=== PATIENT | male | born 1985 | race Caucasian/White ===

== ENCOUNTER 2016-09-30 16:17 | Emergency (ER) | payer SELFPAY ==
[2016-09-30] MEDS ORDERED: Ondansetron 4 MG/2 ML SDV IVPUSH ONE (16:37)
[2016-09-30] MEDS ORDERED: Sodium Chloride 0.9% 10 ML Syringe FLUSH PRN (16:37)
[2016-09-30] MEDS ORDERED: HYDROmorphone 1 MG/ML Syringe IVPUSH ONE (16:38)
[2016-09-30] MEDS ORDERED: Ketorolac 30 MG/ML SDV IVPUSH ONE (16:38)
--- NOTE | 2016-09-30 16:43 | EDM.PDOC ---
ED HPI GENERAL MEDICAL PROBLEM - General Chief Complaint: Flank Pain Stated Complaint: BLOOD IN URINE/LOW BACK PAIN Time Seen by Provider: 09/30/16 16:30 Source of Information: Reports: Patient History Limitations: Reports: No Limitations - History of Present Illness INITIAL COMMENTS - FREE TEXT/NARRATIVE: The patient presents with left flank pain, nausea and vomiting. This started a week ago but it was not this bad. Today the pain got much worse. He has nausea and vomiting. He has no diarrhea. He has some hematuria. He has no dysuria. He has no fever, chills or cough. He has no chest pain or shortness of breath. He has no history of kidney stones. Onset: Gradual Duration: Week(s): (1) Location: Reports: Other (Left flank) Quality: Reports: Sharp Severity: Severe Improves with: Reports: None Worsens with: Reports: None Associated Symptoms: Reports: Nausea/Vomiting. Denies: Cough, Fever/Chills, Headaches, Shortness of Breath Treatments SHOULDER JOINER: Reports: Other (see below) Other Treatments SHOULDER JOINER: tramadol Left Flank Pain Score (Numeric/FACES): 10 - Related Data Allergies Allergy/AdvReac Type Severity Reaction Status Date / Time No Known Allergies Allergy Verified 09/30/16 16:28 Home Meds: Home Meds Ondansetron [Zofran ODT] 4 mg PO Q6H PRN #20 tab.dis 09/30/16 [Rx] Past Medical History - Past Health History Medical/Surgical History: Denies Medical/Surgical History Social & Family History - Tobacco Use Smoking Status *Q: Never Smoker - Caffeine Use Caffeine Use: Reports: Coffee - Recreational Drug Use Recreational Drug Use: No ED ROS GENERAL - Review of Systems Review Of Systems: See Below Constitutional: Reports: No Symptoms HEENT: Reports: No Symptoms Respiratory: Reports: No Symptoms Cardiovascular: Reports: No Symptoms Endocrine: Reports: No Symptoms GI/Abdominal: Reports: Abdominal Pain, Nausea, Vomiting : Reports: Flank Pain (Left), Hematuria Musculoskeletal: Reports: No Symptoms ED EXAM, RENAL/ - Physical Exam Exam: See Below Exam Limited By: No Limitations General Appearance: Alert, No Apparent Distress Ears: Normal External Exam Nose: Normal Inspection Head: Atraumatic, Normocephalic Neck: Normal Inspection Respiratory/Chest: No Respiratory Distress, Lungs Clear, Normal Breath Sounds Cardiovascular: Regular Rate, Rhythm, No Edema, No Murmur GI/Abdominal: Soft, Non-Tender, No Organomegaly, No Mass Back Exam: Normal Inspection Course - Vital Signs Last Recorded V/S: Last Vital Signs Temp 97.0 F 09/30/16 16:23 Pulse 101 H 09/30/16 16:23 Resp 20 09/30/16 16:23 BP 164/85 H 09/30/16 16:23 Pulse Ox 100 09/30/16 16:23 - Orders/Labs/Meds Orders: Active Orders 24 hr Category Date Time Status Peripheral IV Care [RC] . DIRECTED Care 09/30/16 16:38 Active Cyclobenzaprine [Flexeril] Med 09/30/16 18:22 Once 10 mg PO ONETIME ONE HYDROmorphone [Dilaudid] Med 09/30/16 18:21 Once 0.5 mg IVPUSH ONETIME ONE Sodium Chloride 0.9% [Normal Saline] 1,000 ml Med 09/30/16 16:45 Active IV ASDIRECTED Sodium Chloride 0.9% [Saline Flush] Med 09/30/16 16:37 Active 10 ml FLUSH ASDIRECTED PRN ED Antiemetic Medication Reflex [OM.PC] Stat Oth 09/30/16 16:37 Ordered Peripheral IV Insertion Adult [OM.PC] Stat Oth 09/30/16 16:37 Ordered Medication Orders Sodium Chloride (Normal Saline) 1,000 mls @ 125 mls/hr IV ASDIRECTED BAR Last Admin: 09/30/16 16:45 Dose: 125 mls/hr Sodium Chloride (Saline Flush) 10 ml FLUSH ASDIRECTED PRN PRN Reason: Keep Vein Open Last Admin: 09/30/16 16:48 Dose: 10 ml Labs: Laboratory Tests 09/30/16 09/30/16 09/30/16 Range/Units 16:28 16:28 16:30 WBC 12.11 H (4.23-9.07) K/mm3 RBC 4.77 (4.63-6.08) M/mm3 Hgb 14.3 (13.7-17.5) gm/L Hct 42.8 (40.1-51.0) % MCV 89.7 (79.0-92.2) fl MCH 30.0 (25.7-32.2) pg MCHC 33.4 (32.2-35.5) g/dl RDW Std Deviation 48.5 H (35.1-43.9) fL Plt Count 265 (163-337) K/mm3 MPV 10.3 (9.4-12.3) fl Neut % (Auto) 72.2 H (34.0-67.9) % Lymph % (Auto) 19.7 L (21.8-53.1) % [place] % (Auto) 6.9 (5.3-12.2) % Eos % (Auto) 0.7 L (0.8-7.0) Baso % (Auto) 0.3 (0.1-1.2) % Neut # (Auto) 8.74 H (1.78-5.38) K/mm3 Lymph # (Auto) 2.39 (1.32-3.57) K/mm3 [place] # (Auto) 0.84 H (0.30-0.82) K/mm3 Eos # (Auto) 0.08 (0.04-0.54) K/mm3 Baso # (Auto) 0.04 (0.01-0.08) K/mm3 Sodium 141 (136-145) mEq/L Potassium 4.1 (3.5-5.1) mEq/L Chloride 107 (98-107) mEq/L Carbon Dioxide 26 (21-32) mEq/L Anion Gap 12.1 (5-15) BUN 27 H (7-18) mg/dL Creatinine 1.3 (0.7-1.3) mg/dL Est Cr Clr Drug Dosing 84.23 mL/min Estimated GFR (MDRD) > 60 (>60) mL/min BUN/Creatinine Ratio 20.8 H (14-18) Glucose 106 (74-106) mg/dL Calcium 9.0 (8.5-10.1) mg/dL Total Bilirubin 0.5 (0.2-1.0) mg/dL AST 35 (15-37) U/L ALT 36 (16-63) U/L Alkaline Phosphatase 72 (46-116) U/L Total Protein 7.3 (6.4-8.2) g/dl Albumin 3.6 (3.4-5.0) g/dl Globulin 3.7 gm/dL Albumin/Globulin Ratio 1.0 (1-2) Lipase 167 (73-393) U/L Urine Color Yellow (Yellow) Urine Appearance Slt cloudy H (Clear) Urine pH 6.0 (5.0-8.0) Ur Specific [place] 1.025 (1.005-1.030) Urine Protein 1+ H (Negative) Urine Glucose (UA) Negative (Negative) Urine Ketones Negative (Negative) Urine Occult Blood 3+ H (Negative) Urine Nitrite Negative (Negative) Urine Bilirubin Negative (Negative) Urine Urobilinogen 0.2 (0.2-1.0) Ur Leukocyte Esterase Negative (Negative) Urine RBC >100 H (0-5) /hpf Urine WBC 0-5 (0-5) /hpf Ur Epithelial Cells Not Reportable Ur Squamous Epith Cells 5-10 H (0-5) /hpf Urine Bacteria Few (FEW) /hpf Urine Mucus Not seen (FEW) /hpf Meds: Medications Generic Name Dose Route Start Last Admin Trade Name Freq PRN Reason Stop Dose Admin Sodium Chloride 1,000 mls @ 125 mls/hr 09/30/16 16:45 09/30/16 16:45 Normal Saline IV 125 mls/hr ASDIRECTED BAR Administration Sodium Chloride 10 ml 09/30/16 16:37 09/30/16 16:48 Saline Flush FLUSH 10 ml ASDIRECTED PRN Administration Keep Vein Open Discontinued Medications Generic Name Dose Route Start Last Admin Trade Name Freq PRN Reason Stop Dose Admin Hydromorphone HCl 1 mg 09/30/16 16:38 09/30/16 16:47 Dilaudid IVPUSH 09/30/16 16:39 1 mg ONETIME ONE Administration Ketorolac Tromethamine 30 mg 09/30/16 16:38 09/30/16 16:46 Toradol IVPUSH 09/30/16 16:39 30 mg ONETIME ONE Administration Ondansetron HCl 4 mg 09/30/16 16:37 09/30/16 16:44 Zofran IVPUSH 09/30/16 16:38 4 mg ONETIME ONE Administration - Re-Assessments/Exams Free Text/Narrative Re-Assessment/Exam: 09/30/16 16:42 I ordered an IV NS at 125mL/hr, zofran 4mg IV, toradol 30mg IV, dilaudid 1g IV, labs, UA and a CT of his abdomen and pelvis. 09/30/16 18:23 His WBC was elevated at 12.11. His CMP looks good. His UA shows no UTI but he does have blood. The CT shows several small nonobstructing calculi within the left kidney. No ureteral dilatation or ureteral stone is seen. Mild increased stool within the colon. I believe he passed the stone already. He has muscle cramps to his lower back. I will give him some flexeril 10mg by mouth and some dilaudid 0.5mg IV. Departure - Departure Time of Disposition: 18:30 Disposition: Home, Self-Care 01 Condition: good Clinical Impression: Ureteric colic, Kidney stone on left side, Muscle spasm of back - Discharge Information Prescriptions: Ondansetron [Zofran ODT] 4 mg PO Q6H PRN #20 tab.dis PRN Reason: Nausea/Vomiting Referrals: PCP,None [Primary Care Provider] - Jarvis Ring MD [Physician] - 1 Week Forms: ED Department Discharge Additional Instructions: Take flexeril and percocet for the pain. Drink plenty of fluids. Take the zofran as needed for nausea. Follow up with Dr Ring. Please return if you are worse. - My Orders Last 24 Hours: My Active Orders 09/30/16 16:37 Sodium Chloride 0.9% [Saline Flush] 10 ml FLUSH ASDIRECTED PRN ED Antiemetic Medication Reflex [OM.PC] Stat Peripheral IV Insertion Adult [OM.PC] Stat 09/30/16 16:38 Peripheral IV Care [RC] . DIRECTED 09/30/16 16:45 Sodium Chloride 0.9% [Normal Saline] 1,000 ml IV ASDIRECTED 09/30/16 18:21 HYDROmorphone [Dilaudid] 0.5 mg IVPUSH ONETIME ONE 09/30/16 18:22 Cyclobenzaprine [Flexeril] 10 mg PO ONETIME ONE - Assessment/Plan Last 24 Hours: My Active Orders 09/30/16 16:37 Sodium Chloride 0.9% [Saline Flush] 10 ml FLUSH ASDIRECTED PRN ED Antiemetic Medication Reflex [OM.PC] Stat Peripheral IV Insertion Adult [OM.PC] Stat 09/30/16 16:38 Peripheral IV Care [RC] . DIRECTED 09/30/16 16:45 Sodium Chloride 0.9% [Normal Saline] 1,000 ml IV ASDIRECTED 09/30/16 18:21 HYDROmorphone [Dilaudid] 0.5 mg IVPUSH ONETIME ONE 09/30/16 18:22 Cyclobenzaprine [Flexeril] 10 mg PO ONETIME ONE
[2016-09-30] MEDS ORDERED: Sodium Chloride 0.9% 1,000 ML IV SCH (16:45)
--- NOTE | 2016-09-30 17:47 | CT ---
CT abdomen and pelvis Technique: Multiple axial sections were obtained from above the dome of the diaphragm inferiorly through the pubic symphysis. Intravenous and oral contrast not utilized. Study has been performed as a ureteral stone protocol. Findings: Several small nonobstructing calculi are seen within the left kidney. No ureteral dilatation or ureteral stone is seen. No bladder calculi are seen. Calcifications are seen within the pelvis which are felt compatible with phleboliths. Visualized lung bases shows nothing acute. Noncontrast appearance of the visualized liver and spleen appear within normal limits. Adrenal glands show no nodule. No discrete abnormality is appreciated within the pancreas. Aorta shows no aneurysmal dilatation. No retroperitoneal adenopathy or mesenteric abnormalities are seen. No pelvic mass or adenopathy is seen. No free fluid or inflammatory change is seen. No bowel dilatation is appreciated. Slight increased stool is noted within the colon. Bone window settings were reviewed which appears within normal limits for the patient's age. Impression: 1. Several small nonobstructing calculi within the left kidney. No ureteral dilatation or ureteral stone is seen. 2. Mild increased stool within the colon. 3. Nothing acute is otherwise seen on noncontrast CT study of the abdomen and pelvis performed as a ureteral stone protocol. Diagnostic code #2
[2016-09-30] MEDS ORDERED: HYDROmorphone 0.5 MG/0.5 ML Syringe IVPUSH ONE (18:21)
[2016-09-30] MEDS ORDERED: Cyclobenzaprine 10 MG Tab PO ONE (18:22)
[2016-09-30 19:02] VITALS: BP 138/81
== END 2016-09-30 19:00 | disposition home or self-care (01) ==
LOC: JD.ED 16:17
DX: N20.0 Calculus of kidney (principal); M62.830 Muscle spasm of back
CPT/HCPCS: 36415; 74176; 80053; 81001; 83690; 85025; 96361; 96374; 96375; 96376; 99284; A9270; J1170; J1885; J2405; J7040; J7050

== ENCOUNTER 2016-10-04 09:56 | Emergency (ER) | payer SELFPAY ==
[2016-10-04] MEDS ORDERED: HYDROmorphone 0.5 MG/0.5 ML Syringe IVPUSH ONE (10:29)
[2016-10-04] MEDS ORDERED: Metoclopramide 10 MG/2 ML SDV IVPUSH ONE (10:29)
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
[2016-10-04] MEDS ORDERED: Dextrose 5%-0.9% NaCl 1,000 ML IV SCH (10:30)
[2016-10-04] MEDS ORDERED: Lidocaine 1% 10 ML MDV INJECT ONE (10:31)
--- NOTE | 2016-10-04 10:56 | CT ---
Head CT Technique: Multiple axial sections through the brain were obtained. Intravenous contrast was not utilized. Comparison: No previous exam. Findings: Ventricles along the basal cisterns and sulci with convexities are within normal limits for the patient's age. No abnormal parenchymal densities are seen. No evidence of intracranial hemorrhage. No midline shift or mass effect is seen. Bone window settings were reviewed which shows no acute calvarial abnormality. Impression: 1. No acute intracranial abnormality is seen. No skull fracture is identified. Diagnostic code #1
--- NOTE | 2016-10-04 11:01 | CT ---
CT facial bones Technique: Multiple axial sections were obtained through the facial bones. Reconstructed coronal and sagittal images were reviewed. Findings: Minimal mucosal thickening is seen within the maxillary and left sphenoid sinus. Mastoid sinuses are clear. Mild nasal septal deviation is seen. No facial bone fracture is identified. Temporomandibular joints are slightly asymmetric but no acute bony abnormality seen is seen and this presumably represents mandible position. This finding could also represent joint effusion within the right temporomandibular joint. Right and left globes are symmetric. No retrobulbar abnormality is seen. Impression: 1. Asymmetric temporomandibular joints either due to mandible positioning or joint effusion on the right side. 2. No acute bony abnormality is seen. Diagnostic code #3
--- NOTE | 2016-10-04 11:02 | CT ---
CT cervical spine Technique: Multiple axial sections were obtained from above C2 inferiorly to the bottom of T1. Reconstructed sagittal and coronal images were reviewed. Findings: Minimal disc space narrowing is noted at C6-7 with minimal posterior osteophytes. Vertebral body heights are maintained. Vertebral bodies and posterior arches are intact with no fracture being seen. No bony central or bony neural foraminal stenosis is seen. Posterior skull base is intact. No abnormal subluxation is seen. Slight kyphosis is noted likely positional. Impression: 1. Incidental findings. Nothing acute is appreciated on CT study of the cervical spine. Diagnostic code #2
[2016-10-04 12:25] VITALS: BP 110/79
--- NOTE | 2016-10-04 12:55 | CR ---
Right hand: Two views of the right hand were obtained. Joint spaces are preserved. Deformity of the distal fifth metacarpal is seen as well as the shaft of the fourth metacarpal presumably due to old healed fractures. I do not see a definite acute fracture on this two-view study. Impression: 1. Findings felt compatible with old healed fractures as noted above. 2. Nothing acute is definitely appreciated on two-view right hand study. Diagnostic code #2
--- NOTE | 2016-10-04 12:55 | CR ---
Right forearm: Two views of the right forearm were obtained. Comparison: No previous study. No fracture or other abnormality is seen. Impression: 1. No abnormality is identified on two-view right forearm study. Diagnostic code #1
--- NOTE | 2016-10-04 12:55 | CR ---
Chest: Two views of the chest were obtained. Comparison: No previous study. Heart size and mediastinum are normal. Lungs are clear. Mild scoliosis is present within the spine. Old healed left clavicle fracture is noted. Impression: 1. Incidental findings. Nothing acute is identified on two-view chest x-ray. Diagnostic code #2
== END 2016-10-04 12:20 | disposition home or self-care (01) ==
LOC: JD.ED 09:56
DX: S01.511A Laceration without foreign body of lip, initial encounter (principal); S13.9XXA Sprain of joints and ligaments of unspecified parts of neck, initial encounter; M62.838 Other muscle spasm; S80.02XA Contusion of left knee, initial encounter; S20.212A Contusion of left front wall of thorax, initial encounter; S00.83XA Contusion of other part of head, initial encounter; M25.421 Effusion, right elbow; F17.210 Nicotine dependence, cigarettes, uncomplicated; Z87.442 Personal history of urinary calculi; Y04.0XXA Assault by unarmed brawl or fight, initial encounter
CPT/HCPCS: 12011; 70450; 70486; 71020; 72125; 73090; 73120; 96361; 96374; 96375; 99284; J1170; J2765; J7042

== ENCOUNTER 2016-10-17 10:10 | Emergency (ER) | payer OTHER ==
[2016-10-17] MEDS ORDERED: Ketorolac 30 MG/ML SDV IVPUSH ONE (10:53)
[2016-10-17] MEDS ORDERED: Ondansetron 4 MG/2 ML SDV IVPUSH ONE (10:53)
--- NOTE | 2016-10-17 11:19 | CT ---
CT cervical spine Technique: Multiple axial sections through the cervical spine were obtained from above C1 inferiorly to the mid T2 level. Reconstructed sagittal and coronal images were reviewed. Findings: Mastoid sinuses and middle ear cavities are clear. Posterior skull base is intact. Vertebral body heights and disc spaces are maintained. Vertebral bodies and posterior arches are intact with no fracture being seen. No bony central or bony neural foraminal stenosis is seen. No abnormal subluxation is seen. Impression: 1. No acute abnormality is seen on CT study of the cervical spine. Diagnostic code #1
--- NOTE | 2016-10-17 11:29 | CT ---
Head CT Technique: Multiple axial sections through the brain were obtained. Intravenous contrast was not utilized. Comparison: Previous head CT study is 10/04/16. Findings: Ventricles along with basal cisterns and sulci over the convexities are within normal limits for the patient's age. No abnormal parenchymal densities are seen. No evidence of intracranial hemorrhage. No midline shift or mass effect is seen. Bone window settings were reviewed which shows mucosal thickening within the left sphenoid sinus and minimal mucosal thickening posterior ethmoid sinuses and right sphenoid sinus. Other visualized sinuses are clear. No acute calvarial abnormality is seen. Impression: 1. Sinus findings. Please rule out any symptoms of acute sinusitis. 2. No acute intracranial abnormality is appreciated. Diagnostic code #3
--- NOTE | 2016-10-17 11:44 | EDM.PDOC ---
ED HPI GENERAL MEDICAL PROBLEM - General Chief Complaint: Head Injury Stated Complaint: HEAD INJURY Time Seen by Provider: 10/17/16 10:51 Source of Information: Reports: Patient History Limitations: Reports: No Limitations - History of Present Illness INITIAL COMMENTS - FREE TEXT/NARRATIVE: The patient is a 31-year-old male who comes in for evaluation of a head injury. The patient was at work and he stood up and hit his head against something very hard. He did not pass out. However he felt very dizzy and had some difficulty walking after the event. Has a moderate headache. Also has a wound on top of his head. No vision changes. He does have nausea. No vomiting. Denies neck pain. No chest pain or trouble breathing or abdominal pain. Denies additional injury. Came here for evaluation due to headache with dizziness and difficulty walking. Denies recent illness. Head Pain Score (Numeric/FACES): 10 - Related Data Allergies Allergy/AdvReac Type Severity Reaction Status Date / Time No Known Allergies Allergy Verified 10/17/16 10:39 Home Meds: Home Meds Creatine 500 gm MC DAILY 10/04/16 [History] Protein Supplement [Protein Powder] 454 gm PO TID 10/04/16 [History] oxyCODONE HCl/Acetaminophen [Percocet 5-325 mg Tablet] 1 - 2 each PO Q4H PRN # 15 tablet 10/04/16 [Rx] Past Medical History - Past Health History Medical/Surgical History: Denies Medical/Surgical History Genitourinary History: Reports: Renal Calculus Social & Family History - Family History Family Medical History: Noncontributory - Tobacco Use Smoking Status *Q: Current Some Day Smoker Years of Tobacco use: 10 Packs/Tins Daily: 0.2 - Caffeine Use Caffeine Use: Reports: Coffee - Recreational Drug Use Recreational Drug Use: No - Living Situation & Occupation Living situation: Reports: Single Occupation: Employed ED ROS GENERAL - Review of Systems Review Of Systems: See Below Constitutional: Reports: No Symptoms HEENT: Denies: Eye Pain, Vision Change Respiratory: Denies: Shortness of Breath Cardiovascular: Denies: Chest Pain Endocrine: Reports: No Symptoms GI/Abdominal: Denies: Abdominal Pain Musculoskeletal: Denies: Neck Pain Neurological: Reports: Dizziness, Headache ED EXAM, HEAD INJURY - Physical Exam Exam: See Below Exam Limited By: No Limitations General Appearance: Alert, WD/WN, No Apparent Distress Head: Scalp Abrasions, Scalp Tenderness, Other (Patient has a small abrasion and laceration to the left superior scalp area, no active bleeding, subcutaneous but well approximated, minimal surrounding hematoma and tenderness , no crepitus.) Nexus Criteria: Painful Distraction Injuries. No: Posterior, Midline Cervical Tenderness, Evidence of Intoxication, Focal Neurological Deficit Eyes: Bilateral Eye: EOMI, Normal Inspection, PERRL Ears: Normal External Exam, Hearing Grossly Normal Nose: Normal Inspection, Normal Mucousa, No Blood Throat/Mouth: Normal Inspection, Normal Lips, Normal Teeth, Normal Gums, Normal Oropharynx, Normal Voice, No Airway Compromise Neck: Non-Tender, Full Range of Motion, Normal Alignment, Normal Inspection, Other (C-collar in place) Respiratory: No Respiratory Distress, Lungs Clear, Normal Breath Sounds, Chest Non-Tender Cardiovascular: Normal Peripheral Pulses, Regular Rate, Rhythm, No Murmur GI/Abdominal Exam: Soft, Non-Tender, No Distention Back Exam: Normal Inspection Extremities: No Evidence of Injury 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, No Motor/Sensory Deficits, Alert, Normal Mood/Affect, Oriented x 3 Skin: Normal Color, Warm/Dry Course - Vital Signs Last Recorded V/S: Last Vital Signs Temp 36.7 C 10/17/16 10:45 Pulse 88 10/17/16 10:45 Resp 16 10/17/16 10:45 BP 138/90 10/17/16 10:45 Pulse Ox 100 10/17/16 10:45 - Orders/Labs/Meds Meds: Medications Discontinued Medications Generic Name Dose Route Start Last Admin Trade Name Mikael PRN Reason Stop Dose Admin Ketorolac Tromethamine 30 mg 10/17/16 10:53 Toradol IVPUSH 10/17/16 10:54 ONETIME ONE Ondansetron HCl 4 mg 10/17/16 10:53 Zofran IVPUSH 10/17/16 10:54 ONETIME ONE - Re-Assessments/Exams Free Text/Narrative Re-Assessment/Exam: 10/17/16 11:42 CT of the head shows no acute traumatic injury. He does have some mucosal thickening suggestive of sinusitis. The patient does not have any symptoms of sinusitis today. C-spine CT was negative. Patient clinically and radiographically cleared. His symptoms are consistent with concussion. Discussed concussion precautions, need for rest, need for follow-up, etc. Scalp wound does not require sutures. Departure - Departure Time of Disposition: 11:43 Disposition: Home, Self-Care 01 Clinical Impression: Concussion injury of brain, Scalp laceration - Discharge Information Forms: ED Department Discharge, Return to Work/School Form Additional Instructions: Take Tylenol and ibuprofen as needed for pain. It is okay to take both medications as they work and cleared by the body and for ways. Follow-up with the primary doctor as soon as possible for further care. You may call Dr. Vidal at [phone] to make an appointment if he would like to follow-up here. Rest. No work until cleared by a physician. Avoid any strenuous activities, both physical and mental. No activities that could result in new headache injury until cleared by a physician.
[2016-10-17 12:29] VITALS: BP 139/85
== END 2016-10-17 12:30 | disposition home or self-care (01) ==
LOC: JD.ED 10:10
DX: S06.0X9A Concussion with loss of consciousness of unspecified duration, initial encounter (principal); S01.01XA Laceration without foreign body of scalp, initial encounter; F17.210 Nicotine dependence, cigarettes, uncomplicated; Z87.440 Personal history of urinary (tract) infections; Z79.899 Other long term (current) drug therapy; W22.8XXA Striking against or struck by other objects, initial encounter; Y92.69 Other specified industrial and construction area as the place of occurrence of the external cause; Y93.89 Activity, other specified; Y99.0 Civilian activity done for income or pay
CPT/HCPCS: 70450; 72125; 96374; 96375; 99284; J1885; J2405

== ENCOUNTER 2016-11-01 08:32 | Emergency (ER) | payer SELFPAY ==
[2016-11-01 08:48] VITALS: BP 125/88
[2016-11-01] MEDS ORDERED: Ondansetron 4 MG/2 ML SDV IVPUSH ONE (09:01)
[2016-11-01] MEDS ORDERED: Sodium Chloride 0.9% 10 ML Syringe FLUSH PRN (09:01)
[2016-11-01] MEDS ORDERED: Ketorolac 30 MG/ML SDV IVPUSH ONE (09:02)
[2016-11-01] MEDS ORDERED: HYDROmorphone 1 MG/ML Syringe IVPUSH ONE (09:02)
--- NOTE | 2016-11-01 09:09 | EDM.PDOC ---
ED HPI GENERAL MEDICAL PROBLEM - General Chief Complaint: Back Pain or Injury Stated Complaint: LOWER BACK AIN Time Seen by Provider: 11/01/16 08:52 Source of Information: Reports: Patient History Limitations: Reports: No Limitations - History of Present Illness INITIAL COMMENTS - FREE TEXT/NARRATIVE: The patient presents with left flank and left low back pain. This started early this morning. One month ago he had a kidney stone. He thought he passed it but now he is not sure. He has nausea and vomiting. He has no dysuria or hematuria. He has no chest pain or shortness of breath. He has no other complaints. Onset: Sudden Duration: Hour(s): Location: Reports: Back (Left flank and left low back) Quality: Reports: Sharp Severity: Severe Improves with: Reports: None Worsens with: Reports: None Associated Symptoms: Reports: Nausea/Vomiting. Denies: Chest Pain, Fever/Chills , Shortness of Breath Left Flank Pain Score (Numeric/FACES): 8 - Related Data Allergies Allergy/AdvReac Type Severity Reaction Status Date / Time No Known Allergies Allergy Verified 11/01/16 08:47 Home Meds: Home Meds Protein Supplement [Protein Powder] 454 gm PO TID 10/04/16 [History] Ondansetron [Zofran ODT] 4 mg PO Q6H PRN #20 tab.dis 11/01/16 [Rx] oxyCODONE HCl/Acetaminophen [Percocet 5-325 mg Tablet] 1 - 2 each PO Q6HR PRN # 20 tablet 11/01/16 [Rx] Past Medical History - Past Health History Medical/Surgical History: Denies Medical/Surgical History Genitourinary History: Reports: Renal Calculus Social & Family History - Family History Family Medical History: Noncontributory - Tobacco Use Smoking Status *Q: Never Smoker Years of Tobacco use: 10 Packs/Tins Daily: 0.2 - Caffeine Use Caffeine Use: Reports: None - Recreational Drug Use Recreational Drug Use: No - Living Situation & Occupation Living situation: Reports: Single Occupation: Employed ED ROS GENERAL - Review of Systems Review Of Systems: See Below Constitutional: Reports: No Symptoms HEENT: Reports: No Symptoms Respiratory: Reports: No Symptoms Cardiovascular: Reports: No Symptoms Endocrine: Reports: No Symptoms GI/Abdominal: Reports: Abdominal Pain (Left lower), Nausea, Vomiting : Reports: Flank Pain (Left). Denies: Dysuria, Hematuria Musculoskeletal: Reports: Back Pain ED EXAM, UPPER BACK/NECK PAIN - Physical Exam Exam: See Below Exam Limited By: No Limitations General Appearance: Mild Distress Ears Exam: Normal External Exam Nose Exam: Normal Inspection Head Exam: Atraumatic, Normocephalic Neck Exam: Non-Tender, Normal Alignment Cardiovascular/Respiratory: Regular Rate, Rhythm, No M/R/G, Normal Peripheral Pulses, Normal Breath Sounds, No Respiratory Distress GI/Abdominal: Soft, Non-Tender, No Organomegaly, No Mass Back Exam: CVA Tenderness (L) (Moderate) Extremities: Normal Inspection Course - Vital Signs Last Recorded V/S: Last Vital Signs Temp 98.5 F 11/01/16 08:45 Pulse 88 11/01/16 08:45 Resp 18 11/01/16 08:45 BP 125/88 11/01/16 08:45 Pulse Ox 100 11/01/16 08:45 - Orders/Labs/Meds Orders: Active Orders 24 hr Category Date Time Status Peripheral IV Care [RC] . DIRECTED Care 11/01/16 09:01 Active HYDROmorphone [Dilaudid] Med 11/01/16 10:29 Once 0.5 mg IVPUSH ONETIME ONE Sodium Chloride 0.9% [Normal Saline] 1,000 ml Med 11/01/16 09:15 Active IV ASDIRECTED Sodium Chloride 0.9% [Saline Flush] Med 11/01/16 09:01 Active 10 ml FLUSH ASDIRECTED PRN ED Antiemetic Medication Reflex [OM.PC] Stat Oth 11/01/16 09:01 Ordered Peripheral IV Insertion Adult [OM.PC] Stat Oth 11/01/16 09:01 Ordered Medication Orders Sodium Chloride (Normal Saline) 1,000 mls @ 125 mls/hr IV ASDIRECTED BAR Last Admin: 11/01/16 09:09 Dose: 125 mls/hr Sodium Chloride (Saline Flush) 10 ml FLUSH ASDIRECTED PRN PRN Reason: Keep Vein Open Last Admin: 11/01/16 09:11 Dose: 10 ml Labs: Laboratory Tests 11/01/16 11/01/16 11/01/16 Range/Units 08:54 08:54 09:25 WBC 7.84 (4.23-9.07) K/mm3 RBC 5.34 (4.63-6.08) M/mm3 Hgb 16.0 (13.7-17.5) gm/L Hct 47.8 (40.1-51.0) % MCV 89.5 (79.0-92.2) fl MCH 30.0 (25.7-32.2) pg MCHC 33.5 (32.2-35.5) g/dl RDW Std Deviation 46.6 H (35.1-43.9) fL Plt Count 270 (163-337) K/mm3 MPV 10.7 (9.4-12.3) fl Neut % (Auto) 68.9 H (34.0-67.9) % Lymph % (Auto) 23.9 (21.8-53.1) % Rogers % (Auto) 5.6 (5.3-12.2) % Eos % (Auto) 0.8 (0.8-7.0) Baso % (Auto) 0.5 (0.1-1.2) % Neut # (Auto) 5.41 H (1.78-5.38) K/mm3 Lymph # (Auto) 1.87 (1.32-3.57) K/mm3 Rogers # (Auto) 0.44 (0.30-0.82) K/mm3 Eos # (Auto) 0.06 (0.04-0.54) K/mm3 Baso # (Auto) 0.04 (0.01-0.08) K/mm3 Sodium 140 (136-145) mEq/L Potassium 4.0 (3.5-5.1) mEq/L Chloride 102 (98-107) mEq/L Carbon Dioxide 30 (21-32) mEq/L Anion Gap 12.0 (5-15) BUN 20 H (7-18) mg/dL Creatinine 1.0 (0.7-1.3) mg/dL Est Cr Clr Drug Dosing TNP Estimated GFR (MDRD) > 60 (>60) mL/min BUN/Creatinine Ratio 20.0 H (14-18) Glucose 69 L (74-106) mg/dL Calcium 8.5 (8.5-10.1) mg/dL Total Bilirubin 0.7 (0.2-1.0) mg/dL AST 56 H (15-37) U/L ALT 44 (16-63) U/L Alkaline Phosphatase 53 (46-116) U/L Total Protein 8.0 (6.4-8.2) g/dl Albumin 4.0 (3.4-5.0) g/dl Globulin 4.0 gm/dL Albumin/Globulin Ratio 1.0 (1-2) Lipase 106 (73-393) U/L Urine Color Red H (Yellow) Urine Appearance Cloudy H (Clear) Urine pH 5.5 (5.0-8.0) Ur Specific [place] 1.025 (1.005-1.030) Urine Protein 2+ H (Negative) Urine Glucose (UA) Negative (Negative) Urine Ketones Negative (Negative) Urine Occult Blood 3+ H (Negative) Urine Nitrite Negative (Negative) Urine Bilirubin 1+ H (Negative) Urine Urobilinogen 0.2 (0.2-1.0) Ur Leukocyte Esterase Negative (Negative) Urine RBC Too numerous to cnt H (0-5) /hpf Urine WBC 0-5 (0-5) /hpf Ur Epithelial Cells 0-5 (0-5) /hpf Urine Bacteria Not seen (FEW) /hpf Urine Mucus Not seen (FEW) /hpf Meds: Medications Generic Name Dose Route Start Last Admin Trade Name Freq PRN Reason Stop Dose Admin Sodium Chloride 1,000 mls @ 125 mls/hr 11/01/16 09:15 11/01/16 09:09 Normal Saline IV 125 mls/hr ASDIRECTED BAR Administration Sodium Chloride 10 ml 11/01/16 09:01 11/01/16 09:11 Saline Flush FLUSH 10 ml ASDIRECTED PRN Administration Keep Vein Open Discontinued Medications Generic Name Dose Route Start Last Admin Trade Name Freq PRN Reason Stop Dose Admin Hydromorphone HCl 1 mg 11/01/16 09:02 11/01/16 09:11 Dilaudid IVPUSH 11/01/16 09:03 1 mg ONETIME ONE Administration Ketorolac Tromethamine 30 mg 11/01/16 09:02 11/01/16 09:12 Toradol IVPUSH 11/01/16 09:03 30 mg ONETIME ONE Administration Ondansetron HCl 4 mg 11/01/16 09:01 11/01/16 09:09 Zofran IVPUSH 11/01/16 09:02 4 mg ONETIME ONE Administration - Re-Assessments/Exams Free Text/Narrative Re-Assessment/Exam: 11/01/16 09:08 I ordered an IV NS at 125mL/hr, zofran 4mg IV, toradol 30mg IV and dilaudid 1mg IV. I will get a UA, labs and a CT of his abdomen and pelvis. 11/01/16 10:29 His CBC and CMP look good. His UA has blood but no sign of UTI. His CT shows several nonobstructing calculi within both kidneys. No ureteral dilatation or ureteral sone is seen. Mild increased stool is noted within the colon. He has some pain again so I ordered more dilaudid. He says he may have passed the stone when he urinated last. I will get him something for nausea and pain at home. Departure - Departure Time of Disposition: 10:35 Disposition: Home, Self-Care 01 Condition: Good Clinical Impression: Ureteric colic, Kidney stone on left side - Discharge Information Prescriptions: oxyCODONE HCl/Acetaminophen [Percocet 5-325 mg Tablet] 1 - 2 each PO Q6HR PRN # 20 tablet PRN Reason: Pain Ondansetron [Zofran ODT] 4 mg PO Q6H PRN #20 tab.dis PRN Reason: Nausea/Vomiting Referrals: Jarvis Ring MD [Physician] - 1 Week Patience Ruiz PA-C [Physician Booking Agent] - 1 Week Forms: ED Department Discharge, Return to Work/School Form Additional Instructions: Take the zofran as needed for nausea. Take the percocet as needed for pain or naproxyn. Drink plenty of water. Follow up with Dr Ring or one of his partners. Please return if you are worse. - My Orders Last 24 Hours: My Active Orders 11/01/16 09:01 Peripheral IV Care [RC] . DIRECTED Sodium Chloride 0.9% [Saline Flush] 10 ml FLUSH ASDIRECTED PRN ED Antiemetic Medication Reflex [OM.PC] Stat Peripheral IV Insertion Adult [OM.PC] Stat 11/01/16 09:15 Sodium Chloride 0.9% [Normal Saline] 1,000 ml IV ASDIRECTED 11/01/16 10:29 HYDROmorphone [Dilaudid] 0.5 mg IVPUSH ONETIME ONE - Assessment/Plan Last 24 Hours: My Active Orders 11/01/16 09:01 Peripheral IV Care [RC] . DIRECTED Sodium Chloride 0.9% [Saline Flush] 10 ml FLUSH ASDIRECTED PRN ED Antiemetic Medication Reflex [OM.PC] Stat Peripheral IV Insertion Adult [OM.PC] Stat 11/01/16 09:15 Sodium Chloride 0.9% [Normal Saline] 1,000 ml IV ASDIRECTED 11/01/16 10:29 HYDROmorphone [Dilaudid] 0.5 mg IVPUSH ONETIME ONE
[2016-11-01] MEDS ORDERED: Sodium Chloride 0.9% 1,000 ML IV SCH (09:15)
--- NOTE | 2016-11-01 10:10 | CT ---
CT abdomen and pelvis Technique: Multiple axial sections were obtained from above the dome of the diaphragm inferiorly through the pubic symphysis. Intravenous and oral contrast was not utilized. Study has been performed as a ureteral stone protocol. Comparison: Previous CT abdomen and pelvis exam of 09/30/16. Findings: Several nonobstructing calculi are seen within the inferior kidneys on both sides. These appear fairly stable from previous CT exam. No ureteral dilatation is seen. No abnormal calcifications are seen along the course of the ureters. Visualized lung bases shows nothing acute. Noncontrast appearance of the liver and spleen appears within normal limits. Adrenal glands show no nodule. Gallbladder shows no calcified gallstones. Pancreas shows no discrete abnormality. Aorta shows no aneurysmal dilatation. No retroperitoneal adenopathy or mesenteric abnormalities are seen. Appendix is seen and appears normal in size. No pelvic mass or adenopathy is seen. No free fluid or inflammatory change is seen within the abdomen or pelvis. Mild increased stool is noted within the colon. Bone window settings were reviewed which appears within normal limits for the patient's age. Impression: 1. Several nonobstructing calculi within both kidneys. No ureteral dilatation or ureteral stone is seen. 2. Mild increased stool is noted within the colon. 3. No additional abnormality is identified on noncontrast CT study of the abdomen and pelvis performed as a ureteral stone protocol. Diagnostic code #2
[2016-11-01] MEDS ORDERED: HYDROmorphone 0.5 MG/0.5 ML Syringe IVPUSH ONE (10:29)
== END 2016-11-01 10:50 | disposition home or self-care (01) ==
LOC: JD.ED 08:32
DX: N20.0 Calculus of kidney (principal)
CPT/HCPCS: 36415; 74176; 80053; 81001; 83690; 85025; 96361; 96374; 96375; 96376; 99284; J1170; J1885; J2405; J7040; J7050

== ENCOUNTER 2017-01-09 02:20 | Emergency (ER) | payer SELFPAY ==
[2017-01-09 02:29] VITALS: BP 150/88
--- NOTE | 2017-01-09 04:03 | EDM.PDOC ---
ED HPI GENERAL MEDICAL PROBLEM - General Chief Complaint: Lower Extremity Injury/Pain Stated Complaint: [facility] Time Seen by Provider: 01/09/17 02:24 Source of Information: Reports: Patient, RN Notes Reviewed History Limitations: Reports: No Limitations - History of Present Illness INITIAL COMMENTS - FREE TEXT/NARRATIVE: The patient states that he has bilateral leg swelling for more than one week, and that the swelling is getting worse and more painful. He denies recent chest pain, dyspnea, or palpitations. No prior similar symptoms. The patient acknowledges that he has been injecting testosterone enanthate, 250 mg twice a week in alternating buttocks, for the past 8 weeks. He acquires this through the internet. He denies the use of other illicit drugs, however, the patient was stopped by the police tonight, and they found a methamphetamine pipe in his car. The patient states that the car is new to him, and that the pipe was not his. The patient admits only to occasional marijuana use. The patient's PCP is Dr. Matthews. Bilateral Leg Pain Score (Numeric/FACES): 8 - Related Data Allergies Allergy/AdvReac Type Severity Reaction Status Date / Time No Known Allergies Allergy Verified 11/01/16 08:47 Home Meds: Home Meds FLUoxetine [PROzac] 10 mg PO DAILY 01/09/17 [History] Past Medical History Genitourinary History: Reports: Renal Calculus Psychiatric History: Reports: ADHD, Anxiety, Bipolar Social & Family History - Family History Family Medical History: Noncontributory - Tobacco Use Smoking Status *Q: Current Some Day Smoker Years of Tobacco use: 17 Packs/Tins Daily: 0.1 - Caffeine Use Caffeine Use: Reports: None - Alcohol Use Alcohol Use History: Yes Alcohol Use Frequency: Binges - Recreational Drug Use Recreational Drug Use: Yes Drug Use in Last 12 Months: Yes Recreational Drug Type: Reports: Marijuana/Hashish - Living Situation & Occupation Living situation: Reports: Single, Alone 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) Review of Systems - Review of Systems Review Of Systems: See Below Constitutional: Reports: No Symptoms Eyes: Reports: No Symptoms Ears: Reports: No Symptoms Nose: Reports: No Symptoms Mouth/Throat: Reports: No Symptoms Respiratory: Reports: No Symptoms Cardiovascular: Reports: No Symptoms GI/Abdominal: Reports: No Symptoms Genitourinary: Reports: No Symptoms Musculoskeletal: Reports: No Symptoms Skin: Reports: No Symptoms Neurological: Reports: No Symptoms Psychiatric: Reports: Anxiety ED EXAM, GENERAL - Physical Exam Exam: See Below Exam Limited By: No Limitations General Appearance: Alert, WD/WN, No Apparent Distress Eye Exam: Bilateral Eye: Normal Inspection Ears: Normal External Exam, Hearing Grossly Normal Nose: Normal Inspection, No Blood Throat/Mouth: Normal Inspection, Normal Lips, Normal Voice, No Airway Compromise Head: Atraumatic, Normocephalic Neck: Normal Inspection, Full Range of Motion Respiratory/Chest: No Respiratory Distress, Lungs Clear, Normal Breath Sounds, No Accessory Muscle Use Cardiovascular: Normal Peripheral Pulses, Regular Rate, Rhythm, No Gallop, No JVD, No Murmur, No Rub Peripheral Pulses: 4+: Radial (L), Radial (R) GI/Abdominal: Normal Bowel Sounds, Soft, Non-Tender, No Organomegaly, No Distention, No Abnormal Bruit, No Mass (Male) Exam: Deferred Rectal (Males) Exam: Deferred Back Exam: Normal Inspection, Full Range of Motion, NT Extremities: Normal Inspection, Normal Range of Motion, Normal Capillary Refill , Other (2+ pittting edema bilateral legs - does not extend proximal to the knees.) Neurological: Alert, Oriented, Normal Cognition, No Motor/Sensory Deficits Psychiatric: Normal Affect, Anxious Skin Exam: Warm, Dry, Intact, Normal Color, No Rash Course - Vital Signs Last Recorded V/S: Last Vital Signs Temp 37.1 C 01/09/17 02:24 Pulse Resp 16 01/09/17 02:24 BP 150/88 H 01/09/17 02:24 Pulse Ox 100 01/09/17 02:24 - Orders/Labs/Meds Orders: Active Orders 24 hr Category Date Time Status Venous Doppler Lwr Ext Bi [US] Stat Exams 01/09/17 02:41 Taken Labs: Laboratory Tests 01/09/17 01/09/17 01/09/17 Range/Units 02:25 02:25 02:57 WBC 10.83 H (4.23-9.07) K/mm3 RBC 5.35 (4.63-6.08) M/mm3 Hgb 15.7 (13.7-17.5) gm/L Hct 48.4 (40.1-51.0) % MCV 90.5 (79.0-92.2) fl MCH 29.3 (25.7-32.2) pg MCHC 32.4 (32.2-35.5) g/dl RDW Std Deviation 44.4 H (35.1-43.9) fL Plt Count 237 (163-337) K/mm3 MPV 10.7 (9.4-12.3) fl Neutrophils % (Manual) 72 H (40-60) % Band Neutrophils % 0 (0-10) % Lymphocytes % (Manual) 15 L (20-40) % Atypical Lymphs % 4 % Monocytes % (Manual) 5 (2-10) % Eosinophils % (Manual) 4 (0.8-7.0) % Basophils % (Manual) 0 L (0.2-1.2) Platelet Estimate Adequate Plt Morphology Comment See note Hypochromasia 1+ slight Poikilocytosis 2+ moderate Tear Drop Cells 1+ slight Stomatocytes 1+ slight RBC Morph Comment Abnormal PT 10.5 (8.0-13.0) SECONDS INR 0.97 APTT 31 (22-36) SECONDS Sodium 141 (136-145) mEq/L Potassium 3.8 (3.5-5.1) mEq/L Chloride 105 (98-107) mEq/L Carbon Dioxide 30 (21-32) mEq/L Anion Gap 9.8 (5-15) BUN 18 (7-18) mg/dL Creatinine 1.3 (0.7-1.3) mg/dL Est Cr Clr Drug Dosing 86.88 mL/min Estimated GFR (MDRD) > 60 (>60) mL/min BUN/Creatinine Ratio 13.8 L (14-18) Glucose 83 (74-106) mg/dL Calcium 9.0 (8.5-10.1) mg/dL Total Bilirubin 0.7 (0.2-1.0) mg/dL AST 36 (15-37) U/L ALT 34 (16-63) U/L Alkaline Phosphatase 45 L (46-116) U/L Total Protein 7.0 (6.4-8.2) g/dl Albumin 3.1 L (3.4-5.0) g/dl Globulin 3.9 gm/dL Albumin/Globulin Ratio 0.8 L (1-2) - Re-Assessments/Exams Free Text/Narrative Re-Assessment/Exam: 01/09/17 04:08 Doppler ultrasound of the bilateral lower extremities is read by [facility] as "No evidence of DVT bilateral lower extremities". 01/09/17 04:12 Test results discussed with the patient. Testosterone enanthate is associated with an increased risk for DVT/PE, but also for fluid retention and edema. As the patient does not have a DVT, I would have to conclude that his lower extremity edema is due to fluid retention. I discussed treatment options with him that start with immediate discontinuation of the testosterone, to which she has agreed. I am recommending that he wear compression stockings during the day for the next week, and minimize his salt intake. Alternatively, we discussed the option of treating with a diuretic, however, he would then need to have his renal function monitored, which I believe is more complicated than necessary. The patient is agreeable to the compression stocking treatment. I would like the patient to follow-up with his PCP, Dr. Matthews, either this week or next. Departure - Departure Time of Disposition: 04:14 Disposition: Home, Self-Care 01 Condition: Good Clinical Impression: Bilateral lower extremity edema, Adverse effect of testosterone - Discharge Information Referrals: Naomie Matthews [Primary Care Provider] - Forms: ED Department Discharge Additional Instructions: You were seen in the emergency room for swelling of both her legs for more than a week. Workup in the ER included blood work and Doppler ultrasounds of both of her legs. Your workup was unremarkable. You do not have a blood clot in either of your legs. The swelling in your legs is MOST LIKELY due to fluid retention as a side effect of the testosterone that you are injecting. We STRONGLY RECOMMEND that you discontinue injecting testosterone immediately. Purchase knee-high compression stockings and apply them each morning, removing them at bedtime. Continue to wear them until your swelling is all gone. Elevate your legs as much as possible when not walking around. Try to minimize the salt in your diet for the next week or so. Avoid such things as ramen soup, canned soup, and salty snacks. Follow-up with your PCP, Dr. Matthews, this week or early next. If any other problems, please do not hesitate to return to the ER. - My Orders Last 24 Hours: My Active Orders 01/09/17 02:41 Venous Doppler Lwr Ext Bi [US] Stat - Assessment/Plan Last 24 Hours: My Active Orders 01/09/17 02:41 Venous Doppler Lwr Ext Bi [US] Stat
--- NOTE | 2017-01-09 08:29 | US ---
Bilateral lower extremity deep venous ultrasound: Duplex and color flow imaging was obtained of the right and left common femoral, proximal greater saphenous, superficial femoral, popliteal, posterior tibial and peroneal veins. Duplicated superficial femoral system is identified on both sides. Normal phasic flow, augmentation and compression is seen. Mild subcutaneous edema identified bilaterally within both lower extremities. Incidental left groin lymph node. Impression: 1. Mild soft tissue edema within both lower extremities. 2. No deep venous thrombosis is seen within either the right or left lower extremity. Diagnostic code #2 I agree with preliminary report issued by [facility] ([facility] preliminary report dictated on 01/09/17, 5:05 AM Central Time)
== END 2017-01-09 04:30 | disposition home or self-care (01) ==
LOC: JD.ED 02:20
DX: R60.0 Localized edema (principal); T38.7X5A Adverse effect of androgens and anabolic congeners, initial encounter; F31.9 Bipolar disorder, unspecified; F17.210 Nicotine dependence, cigarettes, uncomplicated; Z87.442 Personal history of urinary calculi; Z79.899 Other long term (current) drug therapy
CPT/HCPCS: 36415; 80053; 85025; 85610; 85730; 93970; 93970-26; 99283; 99285-25

== ENCOUNTER 2017-02-22 11:44 | Emergency (ER) | payer SELFPAY ==
[2017-02-22] MEDS ORDERED: HYDROmorphone 1 MG/ML Syringe IVPUSH ONE (11:55)
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
--- NOTE | 2017-02-22 12:37 | CT ---
Head CT Technique: Multiple axial sections through the brain were obtained. Intravenous contrast was not utilized. Comparison: Prior head CT exam of 10/17/16. Findings: Ventricles along with basal cisterns and sulci over the convexities appear within normal limits for the patient's age. No abnormal parenchymal densities are seen. No evidence of intracranial hemorrhage. No midline shift or mass effect is seen. Bone window settings were reviewed which shows the visualized sinuses to appear clear. No acute calvarial abnormality is identified. Impression: 1. Nothing acute is identified on noncontrast head CT study. Diagnostic code #1
--- NOTE | 2017-02-22 12:42 | CT ---
CT cervical spine Technique: Multiple axial sections were obtained from above C1 inferiorly to the mid T2 level. Reconstructed sagittal and coronal images were reviewed. Comparison: Prior CT cervical spine exam of 10/17/16 is available. Findings: Mastoid sinuses and middle ear cavities are clear. Posterior skull base is intact. No bony central or bony neural foraminal stenosis is seen. Vertebral bodies and posterior arches are intact with no fracture being seen. No abnormal subluxation is seen on the reconstructed sagittal images. Incidental note of unfused posterior arch of C1 which is a normal variant. Impression: 1. Nothing acute is seen on CT study of the cervical spine. No significant change is seen from prior exam. Diagnostic code #1
--- NOTE | 2017-02-22 13:04 | CR ---
Chest: Supine view of the chest was obtained. Comparison: Previous chest x-ray of 10/04/16. Heart size and mediastinum are within normal limits. Lungs are clear. Old healed left clavicle fracture is noted. No discrete acute bony abnormality is seen. Impression: 1. Nothing acute is identified on supine chest x-ray. Diagnostic code #2
--- NOTE | 2017-02-22 13:04 | CR ---
Left shoulder: Three views of the left shoulder were obtained. Comparison: No prior left shoulder study. Glenohumeral and acromioclavicular joint appears within normal limits. Slight deformity from previous healed left clavicle fracture is noted. No acute fracture or dislocation is identified. Impression: 1. Old healed left clavicle fracture. 2. Left shoulder study is otherwise unremarkable. Diagnostic code #2
--- NOTE | 2017-02-22 13:04 | CR ---
Left elbow: Four views of the left elbow were obtained. Comparison: No prior elbow study. Joint spaces are maintained. No fracture, dislocation or other bony abnormality is appreciated. Impression: 1. No abnormality is identified on left elbow study. Diagnostic code #1
[2017-02-22 13:07] VITALS: BP 147/85
== END 2017-02-22 13:05 | disposition home or self-care (01) ==
LOC: JD.ED 11:44
DX: S50.02XA Contusion of left elbow, initial encounter (principal); F17.210 Nicotine dependence, cigarettes, uncomplicated; V47.5XXA Car driver injured in collision with fixed or stationary object in traffic accident, initial encounter
CPT/HCPCS: 70450; 71010; 72125; 73030; 73080; 96374; 99285; J1170; 99284

== ENCOUNTER 2017-03-11 07:20 | Emergency (ER) | payer SELFPAY ==
[2017-03-11 07:48] VITALS: BP 118/73
[2017-03-11] MEDS ORDERED: Ondansetron 4 MG/2 ML SDV IVPUSH ONE (08:03)
[2017-03-11] MEDS ORDERED: HYDROmorphone 1 MG/ML Syringe IVPUSH ONE (08:03)
[2017-03-11] MEDS ORDERED: Sodium Chloride 0.9% 10 ML Syringe FLUSH PRN (08:03)
[2017-03-11] MEDS ORDERED: Famotidine 20 MG/2 ML SDV IVPUSH ONE (08:03)
[2017-03-11] MEDS ORDERED: Sodium Chloride 0.9% 1,000 ML IV SCH (08:15)
--- NOTE | 2017-03-11 09:45 | CT ---
CT abdomen and pelvis Technique: Multiple axial sections were obtained from above the dome of the diaphragm inferiorly through the pubic symphysis. Intravenous and oral contrast has not been given. Study has been performed as a ureteral stone protocol. Comparison: Previous abdominal and pelvic CT exam of 11/01/16. Findings: Multiple small calcifications are seen within both kidneys. These calcifications are slightly changing in configuration from prior CT exam. No ureteral dilatation is seen. No abnormal calcifications are seen along the course of the ureters. No parenchymal abnormality is seen within the visualized lung bases. Noncontrast appearance of the liver and spleen appear within normal limits. Adrenal glands show no nodule. Gallbladder contains no calcified gallstones. Pancreas appears within normal limits as seen. Aorta and iliac vessels show no aneurysm. No retroperitoneal adenopathy or mesenteric abnormalities are seen. No pelvic abnormality is identified. Appendix is felt to be seen containing some calcifications compatible with appendicoliths. No inflammatory change is seen around the appendix. Bone window settings appear within normal limits for the patient's age. Impression: 1. Small nonobstructing calculi within both kidneys slightly changing configuration from prior CT exam. No ureteral dilatation or ureteral stone is seen. 2. Appendix contains some appendicoliths but no findings of appendicitis are seen. 3. No additional abnormality is appreciated on noncontrast CT study of the abdomen and pelvis. Diagnostic code #2
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
== END 2017-03-11 10:41 | disposition home or self-care (01) ==
LOC: JD.ED 07:20
DX: R31.9 Hematuria, unspecified (principal); R10.32 Left lower quadrant pain; R11.2 Nausea with vomiting, unspecified; R19.7 Diarrhea, unspecified; F17.210 Nicotine dependence, cigarettes, uncomplicated
CPT/HCPCS: 36415; 74176; 80053; 81001; 85025; 96361; 96374; 96375; 99284; J1170; J2405; J7040; J7050

== ENCOUNTER 2017-03-15 19:23 | Emergency (ER) | payer SELFPAY ==
[2017-03-15 19:56] VITALS: BP 122/79
[2017-03-15] MEDS ORDERED: Lactated Ringers 1,000 ML IV ONE (20:41)
[2017-03-15] MEDS ORDERED: Ondansetron 4 MG/2 ML SDV IVPUSH ONE (20:41)
[2017-03-15] MEDS ORDERED: HYDROmorphone 0.5 MG/0.5 ML Syringe IVPUSH ONE ×3 (20:43→23:41)
[2017-03-15 22:45] LABS: C. TRACHOMATIS BY PCR NOT DETECTED; N. GONORRHOEAE BY PCR NOT DETECTED
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
== END 2017-03-16 00:13 | disposition home or self-care (01) ==
LOC: JD.ED 19:23
DX: N41.9 Inflammatory disease of prostate, unspecified (principal); F17.210 Nicotine dependence, cigarettes, uncomplicated; F31.9 Bipolar disorder, unspecified
CPT/HCPCS: 36415; 80048; 81001; 85025; 87086; 87491; 87591; 96361; 96374; 96375; 96376; 99284; J1170; J2405; J7120; 99283

== ENCOUNTER 2017-03-25 15:18 | Emergency (ER) | payer SELFPAY ==
[2017-03-25 15:32] VITALS: BP 134/94
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
[2017-03-25] MEDS ORDERED: Metoclopramide 10 MG/2 ML SDV IVPUSH ONE (16:04)
[2017-03-25] MEDS ORDERED: HYDROmorphone 0.5 MG/0.5 ML Syringe IVPUSH ONE (16:04)
[2017-03-25] MEDS ORDERED: Sodium Chloride 0.9% 1,000 ML IV SCH (16:15)
[2017-03-25] MEDS ORDERED: Iopamidol 612 MG/ML 150 ML Bottle IVPUSH ONE (16:23)
[2017-03-25] MEDS ORDERED: Sodium Chloride 0.9% 10 ML Syringe FLUSH ONE (16:23)
--- NOTE | 2017-03-25 17:15 | CT ---
CT abdomen and pelvis (without and with contrast) Technique: Multiple axial sections were obtained from above the kidneys inferiorly through the pubic symphysis. Intravenous contrast and oral contrast has not been given. Study was performed as a ureteral stone protocol. Intravenous contrast was then given and imaging obtained through the kidneys at 40 seconds. Delayed images were then obtained from above the kidneys inferiorly through the bladder. Comparison: Previous noncontrast CT abdomen and pelvis study of 03/11/17. Findings: Small nonobstructing calculi are seen within both kidneys which appear fairly stable from most recent exam. No ureteral dilatation is seen. No abnormal calcifications are seen along the course of the ureters. Kidneys show symmetric contrast enhancement. Delayed images show no parenchymal abnormality within the kidneys. Opacified collecting system shows no filling defects. Contrast is seen throughout both portions of the ureters with no evidence of ureteral obstruction. Contrast is seen within the bladder. No ureteral dilatation is seen. Other findings: Small portion of the visualized lung bases are clear. Visualized portions of the liver and spleen appear within normal limits. Gallbladder shows no calcified gallstones. Adrenal glands show no nodule. Pancreas is within normal limits. Aorta shows no aneurysmal dilatation. No retroperitoneal adenopathy or mesenteric abnormalities are seen. No pelvic mass or adenopathy is seen. No free fluid or inflammatory change is seen. Several calcifications compatible with appendicoliths are seen within the appendix. Appendix shows no dilatation or inflammatory change. Bone window settings were reviewed which appear within normal limits for the patient's age. Impression: 1. Several small nonobstructing calculi within both kidneys which remain without significant change from previous CT exam. 2. No ureteral dilatation or ureteral stone is seen. No renal mass is seen. Delayed images show no discrete mass within the collecting system or within the visualized ureters. 3. No acute abnormality is seen within other portions of the abdomen and pelvis as seen on hematuria protocol CT exam. Diagnostic code #2
== END 2017-03-25 17:35 | disposition home or self-care (01) ==
LOC: JD.ED 15:18
DX: R30.0 Dysuria (principal); R31.0 Gross hematuria; F17.210 Nicotine dependence, cigarettes, uncomplicated
CPT/HCPCS: 36415; 74178; 80053; 80306; 81001; 85025; 85610; 96361; 96374; 96375; 99284; G0103; J1170; J2765; J7040; J7050; Q9967

== ENCOUNTER 2017-04-04 19:19 | Emergency (ER) | payer SELFPAY ==
[2017-04-04 19:44] VITALS: BP 131/97
[2017-04-04] MEDS ORDERED: Lidocaine 1% 50 ML MDV INJECT ONE (19:45)
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
--- NOTE | 2017-04-05 07:42 | CR ---
Right hand: Four views of the right hand were obtained. Comparison: Previous right hand study of 10/04/16. Deformity is noted of the fourth and fifth metacarpals compatible with old healed fractures. Fifth finger held in flexion at the PIP joint slightly limiting evaluation. Fracture is identified within the distal phalanx of the second finger which has both a transverse and vertical component. Slight displacement is seen. Soft tissue swelling is noted within the second digit. No additional abnormality is appreciated. Impression: 1. Slightly complicated fracture involving the distal phalanx of the second digit. 2. Soft tissue swelling within the second finger. 3. Old healed fractures within the fourth and fifth metacarpals. Diagnostic code #3
== END 2017-04-04 21:06 | disposition home or self-care (01) ==
LOC: JD.ED 19:19
DX: S61.210A Laceration without foreign body of right index finger without damage to nail, initial encounter (principal); W22.8XXA Striking against or struck by other objects, initial encounter
CPT/HCPCS: 12001; 73130-26-RT; 73130-RT; 99283-25

== ENCOUNTER 2017-04-17 17:05 | Emergency (ER) | payer SELFPAY ==
[2017-04-17 17:20] VITALS: BP 154/98
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
== END 2017-04-17 17:58 | disposition left against medical advice (07) ==
LOC: JD.ED 17:05
DX: S62.630A Displaced fracture of distal phalanx of right index finger, initial encounter for closed fracture (principal); F17.210 Nicotine dependence, cigarettes, uncomplicated; N41.1 Chronic prostatitis; Z76.5 Malingerer [conscious simulation]; X58.XXXA Exposure to other specified factors, initial encounter
CPT/HCPCS: 99283

== ENCOUNTER 2017-04-18 00:41 | Emergency (ER) | payer SELFPAY ==
[2017-04-18 00:47] VITALS: BP 155/110
[2017-04-18] MEDS ORDERED: Acetaminophen/HYDROcodone 325-5 MG Tab PO ONE (01:03)
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
--- NOTE | 2017-04-18 06:39 | CR ---
Right hand: Four views of the right hand were obtained. Old fracture deformities are seen within the fourth and fifth metacarpals. Acute fracture is identified within the base of the distal phalanx of the second digit. Soft tissue swelling is also noted within the second digit. Fingers are held in flexion which somewhat limits the study. No other acute abnormality is seen. Impression: 1. Acute fracture involving the distal phalanx of the second digit. Soft tissue swelling in the seen within the second digit. 2. Old healed fracture deformities within the fourth and fifth metacarpals. Diagnostic code #3
== END 2017-04-18 02:01 | disposition home or self-care (01) ==
LOC: JD.ED 00:41
DX: S61.210A Laceration without foreign body of right index finger without damage to nail, initial encounter (principal); S60.221A Contusion of right hand, initial encounter; R31.9 Hematuria, unspecified; F17.210 Nicotine dependence, cigarettes, uncomplicated; W51.XXXA Accidental striking against or bumped into by another person, initial encounter; K92.1 Melena; N41.9 Inflammatory disease of prostate, unspecified; R11.2 Nausea with vomiting, unspecified
CPT/HCPCS: 36415; 73130; 80053; 81001; 83690; 85025; 99285; A9270; 99283

== ENCOUNTER 2017-08-19 20:27 | Emergency (ER) | payer OTHER ==
[2017-08-19 20:39] VITALS: BP 124/92
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
[2017-08-19] MEDS ORDERED: Famotidine 20 MG/2 ML SDV IVPUSH ONE (21:14)
[2017-08-19] MEDS ORDERED: Ondansetron 4 MG/2 ML SDV IVPUSH ONE (21:14)
[2017-08-19] MEDS ORDERED: Sodium Chloride 0.9% 10 ML Syringe FLUSH PRN (21:14)
[2017-08-19] MEDS ORDERED: Sodium Chloride 0.9% 1,000 ML IV SCH (21:15)
[2017-08-19] MEDS ORDERED: Metoclopramide 10 MG/2 ML SDV IVPUSH ONE (21:33)
[2017-08-19] MEDS ORDERED: Alum Hydrox/Mag Hydrox/Simeth 30 ML, Lidocaine 2% 15 ML PO ONE ×2 (21:52)
== END 2017-08-19 23:43 | disposition home or self-care (01) ==
LOC: JD.ED 20:27
DX: K29.01 Acute gastritis with bleeding (principal); Z87.891 Personal history of nicotine dependence
CPT/HCPCS: 36415; 80053; 82270; 83690; 85025; 96361; 96374; 96375; 99284; A9270; J2405; J2765; J7040; J7050

== ENCOUNTER 2017-12-06 15:06 | Emergency (ER) | payer SELFPAY ==
[2017-12-06 15:15] VITALS: BP 121/76
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
--- NOTE | 2017-12-09 19:40 | CT ---
Head CT Technique: Multiple axial sections through the brain were obtained. Intravenous contrast was not utilized. Comparison: Prior head CT study of 02/22/17. Findings: Ventricles along with basal cisterns and sulci over the convexities are within normal limits for the patient's age. No abnormal parenchymal densities are seen. No evidence of intracranial hemorrhage. No midline shift or mass effect is seen. Bone window settings were reviewed which show the visualized sinuses to appear clear. No acute calvarial abnormality is seen. Impression: 1. Nothing acute is seen on noncontrast head CT study. Diagnostic code #1 I agree with preliminary report issued by [facility] ([facility] report finalized on 12/06/17, 6:24 PM Central Time)
--- NOTE | 2017-12-09 19:40 | CR ---
Lumbar spine: AP and lateral views of the lumbar spine were obtained. Comparison: No prior lumbar spine study. Vertebral body heights and disc spaces are maintained. Pedicles as well as transverse and spinous processes are intact. Sacroiliac joints are within normal limits. No fracture or other bony abnormality is seen. Impression: 1. No abnormality is seen on two-view lumbar spine study. Diagnostic code #1
== END 2017-12-06 19:25 | disposition home or self-care (01) ==
LOC: JD.ED 15:06
DX: F10.129 Alcohol abuse with intoxication, unspecified (principal); R55 Syncope and collapse; Y90.8 Blood alcohol level of 240 mg/100 ml or more; F17.210 Nicotine dependence, cigarettes, uncomplicated
CPT/HCPCS: 36415; 70450; 72100; 80053; 80306; 81001; 85025; 99285; G0480; 99283

== ENCOUNTER 2018-06-18 23:18 | Emergency (ER) | payer MEDICAID ==
[2018-06-18 23:28] VITALS: BP 150/99
[2018-06-18] MEDS ORDERED: LORazepam 1 MG Tab PO ONE (23:57)
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
== END 2018-06-19 00:30 ==
LOC: JD.ED 23:18
DX: F10.120 Alcohol abuse with intoxication, uncomplicated (principal); Z79.899 Other long term (current) drug therapy
CPT/HCPCS: 99283; A9270

== ENCOUNTER 2018-08-03 03:54 | Emergency (ER) | payer MEDICAID ==
[2018-08-03 04:05] VITALS: BP 149/70
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
--- NOTE | 2018-08-03 11:15 | CR ---
Left wrist: Three views of the left wrist were obtained. Comparison: No prior wrist exam. Joint spaces are preserved. No fracture, dislocation or other bony abnormality is seen. Impression: 1. No abnormality is appreciated on left wrist exam. Diagnostic code #1
== END 2018-08-03 05:14 | disposition home or self-care (01) ==
LOC: JD.ED 03:54
DX: L03.114 Cellulitis of left upper limb (principal); F17.210 Nicotine dependence, cigarettes, uncomplicated; M79.632 Pain in left forearm; R23.4 Changes in skin texture; Z79.899 Other long term (current) drug therapy
CPT/HCPCS: 36415; 73110-26-LT; 73110-LT; 85025; 99282; 99283-25